=== PATIENT | female | born 1995 | race Two or more races ===

== ENCOUNTER 2017-05-16 16:35 | Emergency (ER) | payer MEDICAID, OTHER ==
--- NOTE | 2017-05-16 17:03 | ER Document Report ---
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 Patient states she moved here 2 days ago from [place] due to her being in the . Patient states she is urinating blood clots which is progressively getting bigger. Patient also complains of nausea and vomiting. Patient procurement agent which is located in [place], [place] is aware that the patient is here and sent her here due to her symptoms. Patient states that she needs desmopressin. TRAVEL OUTSIDE OF THE [place] IN LAST 30 DAYS: No - Related Data Allergies/Adverse Reactions: aspirin Allergy (Verified 05/16/17 16:37) cefixime [From Suprax] Allergy (Verified 05/16/17 16:37) erythromycin base Allergy (Verified 05/16/17 16:37) ibuprofen [From Motrin] Allergy (Verified 05/16/17 16:37) latex Allergy (Verified 05/16/17 16:37) peanut Allergy (Verified 05/16/17 16:37) Physical Exam - Vital signs Vitals: Temp Pulse Resp BP Pulse Ox 98.8 F 119 H 14 116/87 H 98 05/16/17 16:41 05/16/17 16:41 05/16/17 16:41 05/16/17 16:41 05/16/17 16:41 Course - Vital Signs Vital signs: Temp Pulse Resp BP Pulse Ox 98.8 F 119 H 14 116/87 H 98 05/16/17 16:41 05/16/17 16:41 05/16/17 16:41 05/16/17 16:41 05/16/17 16:41 Scribe Documentation - Scribe Written by Geoffrey:: Geoffrey Hutson, 05/16/2017 17:36 acting as scribe for :: Kishan
[2017-05-16 17:46] LABS: ABSOLUTE BASOPHILS # (AUTO) 0.1 10^3/uL (0.0-0.2); ABSOLUTE LYMPHOCYTES (AUTO) 1.4 10^3/uL (0.5-4.7); ABSOLUTE MONOCYTES (AUTO) 0.9 10^3/uL (0.1-1.4); ABSOLUTE NEUT (AUTO) 11.9 10^3/uL (1.7-8.2); BASOPHILS % (AUTO) 0.6 % (0-2); EOSINOPHILS % (AUTO) 0.2 % (0-6); HEMATOCRIT 41.6 % (36.0-47.0); HEMOGLOBIN 13.6 g/dL (12.0-15.5); LYMPHOCYTES % (AUTO) 9.6 % (13-45); MEAN CORPUSCULAR HEMOGLOBIN 26.6 pg (27.0-33.4); MEAN CORPUSCULAR HGB CONC 32.8 g/dL (32.0-36.0); MEAN CORPUSCULAR VOLUME 81 fl (80-97); MONOCYTES % (AUTO) 6.6 % (3-13); PLATELET COUNT 464 10^3/uL (150-450); RED BLOOD COUNT 5.12 10^6/uL (3.72-5.28); RED CELL DISTRIBUTION WIDTH 15.8 % (11.5-14.0); TOTAL CELLS COUNTED % (AUTO) 100 %; WHITE BLOOD COUNT 14.3 10^3/uL (4.0-10.5)
[2017-05-16 17:57] LABS: INTERNATIONAL RATION (INR) 1.03; PROTHROMBIN TIME 14.3 SEC (11.4-15.4)
[2017-05-16 17:58] LABS: PARTIAL THROMBOPLASTIN TIME 34.2 SEC (23.5-35.8)
[2017-05-16 18:07] LABS: ALANINE AMINOTRANSFERASE 22 U/L (9-52); ALBUMIN 5.2 g/dL (3.5-5.0); ALKALINE PHOSPHATASE 91 U/L (38-126); ANION GAP 18 (5-19); ASPARTATE AMINO TRANSFERASE 24 U/L (14-36); BILIRUBIN,DIRECT 0.4 mg/dL (0.0-0.4); BILIRUBIN,TOTAL 0.7 mg/dL (0.2-1.3); BLOOD UREA NITROGEN 13 mg/dL (7-20); CALCIUM 10.3 mg/dL (8.4-10.2); CARBON DIOXIDE 18 mmol/L (22-30); CHLORIDE 108 mmol/L (98-107); GLUCOSE 103 mg/dL (75-110); SODIUM 143.5 mmol/L (137-145); TOTAL PROTEIN 9.5 g/dL (6.3-8.2)
[2017-05-16 18:13] LABS: APPEARANCE,URINE SLIGHTLY-CLOUDY; BILIRUBIN,URINE NEGATIVE (NEGATIVE); COLOR,URINE RED; GLUCOSE, URINE NEGATIVE (NEGATIVE); KETONES,URINE TRACE mg/dL (NEGATIVE); LEUKOCYTE ESTERASE,URINE NEGATIVE (NEGATIVE); NITRITE,URINE NEGATIVE (NEGATIVE); PROTEIN,URINE >=500 mg/dL (NEGATIVE); URINE SPECIFIC GRAVITY 1.033; UROBILINOGEN,URINE NEGATIVE mg/dL (<2.0)
[2017-05-16] MEDS ORDERED: METOCLOPRAMIDE HCL 10 MG TABLET PO ONE (18:24)
--- NOTE | 2017-05-16 18:24 | ER Document Report ---
ED General - General Chief Complaint: Urinary Problem Stated Complaint: BLOOD IN URINE Time Seen by Provider: 05/16/17 16:54 Mode of Arrival: Ambulatory Information source: Patient Notes: 21 yr old female hx of hemophilia presents with complaints of hematuria. Pt notes suprapubic pressure, denies any fevers or chills , notes clots. pt was just moving here from [place] 2 days ago. TRAVEL OUTSIDE OF THE [place] IN LAST 30 DAYS: No - HPI Onset: This morning Onset/Duration: Sudden Quality of pain: Achy Severity: Mild Pain Level: 1 Associated symptoms: Other Exacerbated by: Denies Relieved by: Denies Similar symptoms previously: Yes Recently seen / treated by doctor: No - Related Data Allergies/Adverse Reactions: aspirin Allergy (Verified 05/16/17 16:37) cefixime [From Suprax] Allergy (Verified 05/16/17 16:37) erythromycin base Allergy (Verified 05/16/17 16:37) ibuprofen [From Motrin] Allergy (Verified 05/16/17 16:37) latex Allergy (Verified 05/16/17 16:37) peanut Allergy (Verified 05/16/17 16:37) Past Medical History - General Information source: Patient - Social History Smoking Status: Never Smoker Cigarette use (# per day): No Chew tobacco use (# tins/day): No Smoking Education Provided: No Frequency of alcohol use: None Drug Abuse: None Family History: Reviewed & Not Pertinent Patient has suicidal ideation: No Patient has homicidal ideation: No Pulmonary Medical History: Reports: Hx Asthma Neurological Medical History: Reports: Hx Seizures Renal/ Medical History: Denies: Hx Peritoneal Dialysis Past Surgical History: Reports: Hx Abdominal Surgery - unsure of what Review of Systems - Review of Systems Notes: REVIEW OF SYSTEMS: CONSTITUTIONAL : Denies fever, chills, or sweats. Denies recent illness. EENT: Denies eye, ear, throat, or mouth pain or symptoms. Denies nasal or sinus congestion or discharge. Denies throat, tongue, or mouth swelling or difficulty swallowing. CARDIOVASCULAR: Denies chest pain. Denies palpitations or racing or irregular heart beat. Denies ankle edema. RESPIRATORY: Denies cough, cold, or chest congestion. Denies shortness of breath, difficulty breathing, or wheezing. GASTROINTESTINAL: Denies abdominal pain or distention. Denies nausea, vomiting , or diarrhea. Denies blood in vomitus, stools, or per rectum. Denies black, tarry stools. Denies constipation. GENITOURINARY: Admits to blood in the urine FEMALE GENITOURINARY: Denies vaginal bleeding, heavy or abnormal periods, irregular periods. Denies vaginal discharge or odor. MUSCULOSKELETAL: Denies back or neck pain or stiffness. Denies joint pain or swelling. SKIN: Denies rash, lesions or sores. HEMATOLOGIC : Admits to easy bruising LYMPHATIC: Denies swollen, enlarged glands. NEUROLOGICAL: Denies confusion or altered mental status. Denies passing out or loss of consciousness. Denies dizziness or lightheadedness. Denies headache. Denies weakness or paralysis or loss of use of either side. Denies problems with gait or speech. Denies sensory loss, numbness, or tingling. Denies seizures. PSYCHIATRIC: Denies anxiety or stress. Denies depression, suicidal ideation, or homicidal ideation. ALL OTHER SYSTEMS REVIEWED AND NEGATIVE. PHYSICAL EXAMINATION: GENERAL: Well-appearing, well-nourished and in no acute distress. HEAD: Atraumatic, normocephalic. EYES: Pupils equal round and reactive to light, extraocular movements intact, conjunctiva are normal. ENT: Nares patent, oropharynx clear without exudates. Moist mucous membranes. NECK: Normal range of motion, supple without lymphadenopathy LUNGS: Breath sounds clear to auscultation bilaterally and equal. No wheezes rales or rhonchi. HEART: Regular rate and rhythm without murmurs ABDOMEN: Soft, nontender, nondistended abdomen. No guarding, no rebound. No masses appreciated. Female : deferred Musculoskeletal: Normal range of motion, no pitting or edema. No cyanosis. NEUROLOGICAL: Cranial nerves grossly intact. Normal speech, normal gait. Normal sensory, motor exams PSYCH: Normal mood, normal affect. SKIN: Ecchymosis noted on the right arm left arm right thoracic T6 region Dictation was performed using [employer] voice recognition software Physical Exam - Vital signs Vitals: Temp Pulse Resp BP Pulse Ox 98.8 F 119 H 14 116/87 H 98 05/16/17 16:41 05/16/17 16:41 05/16/17 16:41 05/16/17 16:41 05/16/17 16:41 Course - Re-evaluation Re-evalutation: 05/16/17 18:23 [facility] contacted [phone] , awaiting call back 05/16/17 18:35 Jenniffer WINN DDAVP 0.3 mg/kg maxed at 24 = 12mg 05/16/17 19:48 DDAVP was given at the request of her provider, patient otherwise is stable will be treated as a UTI and will be given discharge follow-up with building construction professor here After performing a Medical Screening Examination, I estimate there is LOW risk for ACUTE CORONARY SYNDROME, PULMONARY EMBOLI, RESPIRATORY FAILURE, SEPSIS OR MENINGITIS, thus I consider the discharge disposition reasonable. I have reevaluated this patient multiple times and no significant life threatening changes are noted. The patient and I have discussed the diagnosis and risks, and we agree with discharging home with close follow-up. We also discussed returning to the Emergency Department immediately if new or worsening symptoms occur. We have discussed the symptoms which are most concerning (e.g., changing or worsening pain, trouble swallowing or breathing, neck stiffness, fever) that necessitate immediate return. - Vital Signs Vital signs: Temp Pulse Resp BP Pulse Ox 98.8 F 119 H 14 116/87 H 98 05/16/17 16:41 05/16/17 16:41 05/16/17 16:41 05/16/17 16:41 05/16/17 16:41 - Laboratory Result Diagrams: 05/16/17 17:15 05/16/17 17:15 Laboratory results interpreted by me: 05/16/17 05/16/17 05/16/17 17:15 17:15 17:15 WBC 14.3 H MCH 26.6 L RDW 15.8 H Plt Count 464 H Seg Neutrophils % 83.0 H Lymphocytes % 9.6 L Absolute Neutrophils 11.9 H Chloride 108 H Carbon Dioxide 18 L Calcium 10.3 H Total Protein 9.5 H Albumin 5.2 H Urine Protein >=500 H Urine Ketones TRACE H Urine Blood LARGE H Urine Ascorbic Acid 40 H Discharge - Discharge Clinical Impression: Hemophilia Urinary tract infection with hematuria Qualifiers: Urinary tract infection type: acute cystitis Qualified Code(s): N30.01 - Acute cystitis with hematuria Condition: Stable Disposition: HOME, SELF-CARE Instructions: Urinary Tract Infection ([facility]) Prescriptions: Cephalexin Monohydrate [Keflex 500 mg Capsule] 500 mg PO BID 5 Days capsule Ciprofloxacin HCl [Cipro 500 mg Tablet] 500 mg PO BID #10 tablet Metoclopramide HCl [Reglan 10 mg Tablet] 1 - 2 tab PO ASDIR PRN #25 tablet PRN Reason: Referrals: EZEKIEL WYATT MD [ACTIVE STAFF] - Follow up tomorrow
[2017-05-16] MEDS ORDERED: DESMOPRESSIN ACETATE INJ 4 MCG/1 ML AMPULE IV ONE (18:37)
[2017-05-16] MEDS ORDERED: CIPROFLOXACIN HCL 500 MG TABLET PO ONE (19:00)
[2017-05-16] MEDS ORDERED: DESMOPRESSIN ACETATE IV ONE (19:30)
[2017-05-16] MEDS ORDERED: NORMAL SALINE IV ONE (19:30)
[2017-05-16] MEDS ORDERED: NORMAL SALINE 1000 ML 1,000 ML IV ONE (20:15)
[2017-05-16 20:50] VITALS: BP 124/85
== END 2017-05-16 20:51 | disposition home or self-care (01) ==
LOC: ER 16:35
DX: D66 Hereditary factor VIII deficiency (principal); N30.01 Acute cystitis with hematuria; Z88.6 Allergy status to analgesic agent; Z91.040 Latex allergy status; Z91.010 Allergy to peanuts
CPT/HCPCS: 99283; 96374; 36415; 84703; 85025; 85610; 85730; 80053; 81001; J2597

== ENCOUNTER 2017-12-04 10:53 | Emergency (ER) | payer OTHER ==
[2017-12-04] MEDS ORDERED: NORMAL SALINE 1000 ML 1,000 ML IV ONE (11:42)
[2017-12-04] MEDS ORDERED: ONDANSETRON HCL INJ/PF 4 MG/2 ML SDV IV ONE (11:42)
--- NOTE | 2017-12-04 11:44 | ER Document Report ---
ED Medical Screen (RME) - General Chief Complaint: Seizure Stated Complaint: POSSIBLE ALLERGIC REACTION Time Seen by Provider: 12/04/17 11:28 TRAVEL OUTSIDE OF THE [place] IN LAST 30 DAYS: No - HPI Notes: 12/04/17 11:43 Patient is a 22-year-old female that presents to the emergency department for chief complaint of seizure, nausea, vomiting, abdominal pain, diarrhea, migraines. Patient reports self-limited seizure that started today. She had her Topamax and Lamictal increased 2 days ago by her primary care doctor. She endorses nausea, vomiting, abdominal pain and worsening migraines over the past few days. ROS: GENERAL: Denies fever of chills CV: Denies chest pain PHYSICAL EXAMINATION: GENERAL: Well-appearing, well-nourished and in no acute distress. HEAD: Atraumatic, normocephalic. EYES: Pupils equal round extraocular movements intact, conjunctiva are normal. ENT: Nares patent NECK: Normal range of motion LUNGS: No respiratory distress Musculoskeletal: Normal range of motion NEUROLOGICAL: Normal speech, normal gait. PSYCH: Normal mood, normal affect. Skin: Serous blister over right eyelid, diffuse erythematous macular rash MDM: Patient seen and examined for rapid initial assessment. Vital signs reviewed. A comprehensive ED assessment and evaluation of the patient, analysis of test results and completion of the medical decision making process will be conducted by additional ED providers. - Related Data Allergies/Adverse Reactions: aspirin Allergy (Verified 12/04/17 10:59) cefixime [From Suprax] Allergy (Verified 12/04/17 10:59) erythromycin base Allergy (Verified 12/04/17 10:59) ibuprofen [From Motrin] Allergy (Verified 12/04/17 10:59) latex Allergy (Verified 12/04/17 10:59) peanut Allergy (Verified 12/04/17 10:59) Past Medical History - Social History Chew tobacco use (# tins/day): No Frequency of alcohol use: None Drug Abuse: None Pulmonary Medical History: Reports: Hx Asthma Neurological Medical History: Reports: Hx Seizures Renal/ Medical History: Denies: Hx Peritoneal Dialysis Past Surgical History: Reports: Hx Abdominal Surgery - unsure of what Physical Exam - Vital signs Vitals: Temp Pulse Resp BP Pulse Ox 97.3 F 107 H 20 129/82 H 100 12/04/17 11:09 12/04/17 11:09 12/04/17 11:09 12/04/17 11:09 12/04/17 11:09 Course - Vital Signs Vital signs: Temp Pulse Resp BP Pulse Ox 97.3 F 107 H 20 129/82 H 100 12/04/17 11:09 12/04/17 11:09 12/04/17 11:09 12/04/17 11:09 12/04/17 11:09
[2017-12-04 12:14] LABS: ABSOLUTE BASOPHILS # (AUTO) 0.1 10^3/uL (0.0-0.2); ABSOLUTE LYMPHOCYTES (AUTO) 0.9 10^3/uL (0.5-4.7); ABSOLUTE MONOCYTES (AUTO) 0.7 10^3/uL (0.1-1.4); ABSOLUTE NEUT (AUTO) 15.2 10^3/uL (1.7-8.2); BASOPHILS % (AUTO) 0.4 % (0-2); EOSINOPHILS % (AUTO) 0.1 % (0-6); HEMATOCRIT 45.3 % (36.0-47.0); HEMOGLOBIN 15.6 g/dL (12.0-15.5); LYMPHOCYTES % (AUTO) 5.2 % (13-45); MEAN CORPUSCULAR HEMOGLOBIN 29.8 pg (27.0-33.4); MEAN CORPUSCULAR HGB CONC 34.4 g/dL (32.0-36.0); MEAN CORPUSCULAR VOLUME 87 fl (80-97); PLATELET COUNT 298 10^3/uL (150-450); RED BLOOD COUNT 5.23 10^6/uL (3.72-5.28); RED CELL DISTRIBUTION WIDTH 14.8 % (11.5-14.0); SEGMENTED NEUTROPHILS % (AUTO) 90.3 % (42-78); TOTAL CELLS COUNTED % (AUTO) 100 %; WHITE BLOOD COUNT 16.8 10^3/uL (4.0-10.5)
[2017-12-04] MEDS ORDERED: HALOPERIDOL LACTATE INJ 5 MG/1 ML VIAL IV ONE (12:32)
[2017-12-04] MEDS ORDERED: DEXAMETHASONE SOD PHOS INJ 10 MG/1 ML VIAL IV ONE (12:33)
[2017-12-04] MEDS ORDERED: ACETAMINOPHEN 325 MG TABLET PO ONE (12:33)
[2017-12-04] MEDS ORDERED: DIPHENHYDRAMINE HCL 50 MG/ML VIAL IV ONE (12:33)
--- NOTE | 2017-12-04 12:35 | ER Document Report ---
ED Seizure - General Chief Complaint: Seizure Stated Complaint: POSSIBLE ALLERGIC REACTION Time Seen by Provider: 12/04/17 11:28 - HPI Notes: seizure. 22-year-old female with history of seizure disorder presents with another seizure this morning. Patient is also complaining of migraine 10/10 throbbing in nature without radiation. This is 1 of her standard migraines has been growing for 3 or 4 days. Has been associated with profound nausea negative vomiting. Patient is also endorsing some sores on her back and body very painful to palpation. Nonblanching. 8/10 burning in nature. This is started with a recent titration up of her Lamictal and Topamax. Seizure resolve spontaneously by itself is - Related Data Allergies/Adverse Reactions: aspirin Allergy (Verified 12/04/17 10:59) cefixime [From Suprax] Allergy (Verified 12/04/17 10:59) erythromycin base Allergy (Verified 12/04/17 10:59) ibuprofen [From Motrin] Allergy (Verified 12/04/17 10:59) latex Allergy (Verified 12/04/17 10:59) peanut Allergy (Verified 12/04/17 10:59) Past Medical History - Social History Smoking Status: Never Smoker Chew tobacco use (# tins/day): No Frequency of alcohol use: None Drug Abuse: None Family History: Reviewed & Not Pertinent Patient has suicidal ideation: No Patient has homicidal ideation: No Pulmonary Medical History: Reports: Hx Asthma Neurological Medical History: Reports: Hx Seizures Renal/ Medical History: Denies: Hx Peritoneal Dialysis Past Surgical History: Reports: Hx Abdominal Surgery - unsure of what Review of Systems - Review of Systems Notes: REVIEW OF SYSTEMS: CONSTITUTIONAL: -fevers, -chills EENT: -eye pain, -difficulty swallowing, -nasal congestion CARDIOVASCULAR: -chest pain, -syncope. RESPIRATORY: -cough, -SOB GASTROINTESTINAL: -abdominal pain, + nausea, + vomiting, -diarrhea GENITOURINARY: -dysuria, -hematuria MUSCULOSKELETAL: -back pain, -neck pain SKIN: -rash or skin lesions. HEMATOLOGIC: -easy bruising or bleeding. LYMPHATIC: -swollen, enlarged glands. NEUROLOGICAL: -altered mental status or loss of consciousness, + headache, - neurologic symptoms PSYCHIATRIC: -anxiety, -depression. ALL OTHER SYSTEMS REVIEWED AND NEGATIVE. Physical Exam - Vital signs Vitals: Temp Pulse Resp BP Pulse Ox 97.3 F 107 H 20 129/82 H 100 12/04/17 11:09 12/04/17 11:09 12/04/17 11:09 12/04/17 11:09 12/04/17 11:09 - Notes Notes: PHYSICAL EXAMINATION: GENERAL: Well-appearing, well-nourished and in no acute distress. HEAD: Atraumatic, normocephalic. EYES: Pupils equal round and reactive to light, extraocular movements intact, sclera anicteric, conjunctiva are normal. ENT: nares patent, oropharynx clear without exudates. Moist mucous membranes. NECK: Normal range of motion, supple without lymphadenopathy LUNGS: Breath sounds clear to auscultation bilaterally and equal. No wheezes rales or rhonchi. HEART: Regular rate and rhythm without murmurs ABDOMEN: Soft, nontender, normoactive bowel sounds. No guarding, no rebound. No masses appreciated. EXTREMITIES: Normal range of motion, no pitting or edema. No cyanosis. NEUROLOGICAL: Cranial nerves grossly intact. Normal speech, normal gait. Normal sensory and motor exams. PSYCH: Normal mood, normal affect. SKIN: Warm, Dry, back is multiple painful palpable purpura and bilateral upper extremity palpable very. Course - Re-evaluation Re-evalutation: 12/04/17 14:53 Well-appearing young girl no acute distress given headache cocktail feeling much improved. Patient's extensive lab workup relatively unremarkable at this time. Patient is scheduled to see her family doctor tomorrow. Patient has known seizure disorder think she is having allergic reaction to her Lamictal. Levels pending at this time. Recommend she DC the tramadol she is seeing her PCP tomorrow who manages her seizure medications. Given strict return precautions - Vital Signs Vital signs: Temp Pulse Resp BP Pulse Ox 97.3 F 107 H 20 112/65 100 12/04/17 11:09 12/04/17 11:09 12/04/17 13:01 12/04/17 13:01 12/04/17 13:00 - Laboratory Result Diagrams: 12/04/17 11:55 12/04/17 13:47 Laboratory results interpreted by me: 12/04/17 12/04/17 12/04/17 11:40 11:55 13:47 WBC 16.8 H Hgb 15.6 H RDW 14.8 H Seg Neutrophils % 90.3 H Lymphocytes % 5.2 L Absolute Neutrophils 15.2 H Potassium 3.5 L Chloride 112 H Carbon Dioxide 18 L BUN 5 L Creatinine 0.43 L Ur Leukocyte Esterase TRACE H Discharge - Discharge Clinical Impression: Seizure Condition: Stable Disposition: HOME, SELF-CARE Instructions: Seizure, Known Epileptic ([facility]) Additional Instructions: See your PCP tomorrow
[2017-12-04 13:01] LABS: APPEARANCE,URINE TURBID; BILIRUBIN,URINE NEGATIVE (NEGATIVE); COLOR,URINE YELLOW; GLUCOSE, URINE NEGATIVE (NEGATIVE); KETONES,URINE NEGATIVE (NEGATIVE); LEUKOCYTE ESTERASE,URINE TRACE (NEGATIVE); NITRITE,URINE NEGATIVE (NEGATIVE); PROTEIN,URINE NEGATIVE (NEGATIVE); URINE SPECIFIC GRAVITY 1.026; UROBILINOGEN,URINE NEGATIVE mg/dL (<2.0)
[2017-12-04 14:42] LABS: ALANINE AMINOTRANSFERASE 17 U/L (9-52); ALBUMIN 3.8 g/dL (3.5-5.0); ALKALINE PHOSPHATASE 85 U/L (38-126); ANION GAP 10 (5-19); ASPARTATE AMINO TRANSFERASE 17 U/L (14-36); BILIRUBIN,DIRECT 0.2 mg/dL (0.0-0.4); BILIRUBIN,TOTAL 0.4 mg/dL (0.2-1.3); BLOOD UREA NITROGEN 5 mg/dL (7-20); CALCIUM 8.6 mg/dL (8.4-10.2); CARBON DIOXIDE 18 mmol/L (22-30); CHLORIDE 112 mmol/L (98-107); GLUCOSE 110 mg/dL (75-110); LIPASE 54.3 U/L (23-300); POTASSIUM 3.5 mmol/L (3.6-5.0); SODIUM 140.4 mmol/L (137-145); TOTAL PROTEIN 7.4 g/dL (6.3-8.2)
[2017-12-04 15:15] VITALS: BP 120/86
== END 2017-12-04 15:15 | disposition home or self-care (01) ==
LOC: ER 10:53
DX: R56.9 Unspecified convulsions (principal); R11.2 Nausea with vomiting, unspecified; J45.909 Unspecified asthma, uncomplicated
CPT/HCPCS: 99284; 96374; 96375; 36415; 83690; 85025; 81025; 80053; 80175; 81001; J1200; J1630; J2405; J7030; J1100